=== PATIENT | male | born 1930 | race Hispanic/Latino ===

== ENCOUNTER 2017-08-21 06:42 | Emergency (ER) | payer OTHER, MEDICARE, BC ==
[2017-08-21] MEDS ORDERED: Albuterol-Ipratrop 3 mg / 0.5 (3 ml) UD ONE (06:49)
[2017-08-21 07:00] VITALS: RESP 18; TEMP 98
[2017-08-21] MEDS ORDERED: Bacitracin 500 Units/gm Oint Foilpak UD TOP ONE (07:50)
[2017-08-21] MEDS ORDERED: Bacitracin 500 Units/gm Oint Foilpak UD ONE (08:15)
--- NOTE | 2017-08-21 08:37 | RAD ---
PROCEDURE: Right Hand Radiographs. HISTORY: injury, pain to the dorsal metacarpals COMPARISON: None. FINDINGS: BONES: . No fracture. JOINTS: Metacarpophalangeal, proximal and distal interphalangeal joint space narrowing are present. The Suggested the distal interphalangeal joints are most notably narrowed. The osseous hypertrophic changes are most pronounced at the the 1st interphalangeal joint. First carpal metacarpal joint space narrowing and spurring here also noted.. SOFT TISSUES: Normal. OTHER FINDINGS: Patchy amorphous hyperdensities possibly vascular calcifications , project over the web space between the 1st and 2nd proximal metacarpals. IMPRESSION: No of acute fracture or dislocation. Arthrosis. Possible vascular calcifications. No history of penetrating trauma to suggest any foreign body ; clinical correlation in this regard however is recommended
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
--- NOTE | 2017-08-21 08:57 | RAD ---
Chest x-ray two views History: Right rib pain. Injury. Comparison: 05/03/2017 Findings: Again identified is dense right apical pleural thickening and consolidation. Again identified are nodular densities seen projecting over the lateral aspect of the right midlung zone. Chain sutures in the right lung. Again identified is pleural thickening and/or pleural effusion at the right costophrenic angle. Scattered nodularity throughout both lungs for example in the left mid to lower lung zone. Diffuse increased interstitial lung markings which may be chronic. Status post median sternotomy. Degenerative changes in the spine and shoulders. 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 Additional deformities of the right 7th and 8th posterior ribs. Clinical correlation. Additional rib deformities of several left lower lateral thoracic ribs. Clinical correlation. Impression: Overall no significant change since the prior study. Correlation with chest CT may be helpful if clinically indicated. Again identified is dense right apical pleural thickening and consolidation. Again identified are nodular densities seen projecting over the lateral aspect of the right midlung zone. Chain sutures in the right lung. Again identified is pleural thickening and/or pleural effusion at the right costophrenic angle. Scattered nodularity throughout both lungs for example in the left mid to lower lung zone. Diffuse increased interstitial lung markings which may be chronic. Status post median sternotomy. Degenerative changes in the spine and shoulders. 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 Additional deformities of the right 7th and 8th posterior ribs. Clinical correlation. Additional rib deformities of several left lower lateral thoracic ribs. Clinical correlation.
[2017-08-21 09:09] VITALS: BP 147/70; PULSE 76
[2017-08-21 09:18] VITALS: O2SAT 98
== END 2017-08-21 09:09 | disposition home or self-care (01) ==
LOC: C.ER 06:42 → SUPCPDRO 06:42 → C.ER 09:09
DX: S60.221A Contusion of right hand, initial encounter (principal); S20.211A Contusion of right front wall of thorax, initial encounter; V03.90XA Pedestrian on foot injured in collision with car, pick-up truck or van, unspecified whether traffic or nontraffic accident, initial encounter; Y93.89 Activity, other specified; Y92.410 Unspecified street and highway as the place of occurrence of the external cause

== ENCOUNTER 2018-11-20 12:09 | Outpatient (CLI) | payer MEDICARE, BC | END 2018-11-20 12:10 | disposition home or self-care (01) | LOC: C.CTH 12:09 | DX: C34.90 Malignant neoplasm of unspecified part of unspecified bronchus or lung (principal) ==

== ENCOUNTER 2018-12-11 11:59 | Outpatient (CLI) | payer MEDICARE, BC | END 2018-12-11 12:00 | disposition home or self-care (01) | LOC: C.RADH 11:59 ==

== ENCOUNTER 2018-12-27 08:49 | Day surgery (SDC) | payer MEDICARE, BC ==
[2018-12-27 10:17] VITALS: BMI 22.8
--- NOTE | 2018-12-27 10:18 | CP.SDSHP ---
Same Day Surgery H & P - History Proposed Procedure: US guided FNA of right neck mass Pre-Op Diagnosis: nECK MASS - Allergies Allergies: Allergies No Known Allergies Allergy (Verified 12/12/18 10:16) - Physical Exam Mental Status: Alert & Oriented x3 - Impression Impression: Limited US of neck did not show any enlarged nodes. No FNA was performed. Pt. Evaluated Today:Candidate for Anesthesia & Procedure: No Short Stay Discharge - Short Stay Discharge Admitting Diagnosis/Reason for Visit: DX: NECK MASS -R22.1 Disposition: HOME/ ROUTINE
--- NOTE | 2018-12-27 10:20 | US ---
Date of service: 12/27/2018 PROCEDURE: HISTORY: ENLARGED LYMPH NODE COMPARISON: TECHNIQUE: Limited ultrasound of the right and left neck were performed for purposes of fine aspiration. FINDINGS: No enlarged lymph node. There is a 5 millimeter right is submandibular lymph node present. This is too small for fine aspiration. IMPRESSION: No large lymph nodes seen in the neck. Lymph node described on the CT scan of 11/20/2018 is not identified. A 5 millimeter no submandibular lymph nodes present. There is too small for FNA.
== END 2018-12-27 11:20 | disposition home or self-care (01) ==
LOC: C.SPRAD 08:49
PROVIDERS: ATTEND Radiology Vascular & Interventional Radiology
DX: R59.1 Generalized enlarged lymph nodes (principal)